=== PATIENT | female | born 1980 | race Caucasian/White ===

== ENCOUNTER 2018-12-22 14:49 | Inpatient (IN) ==
[2018-12-22] MEDS ORDERED: SODIUM CHLORIDE 0.9% 1000ML 1,000 ML IV ONE (15:28)
[2018-12-22] MEDS ORDERED: ONDANSETRON INJ 2 MG/ML 2 ML VIAL IV STA (15:28)
[2018-12-22 15:59] LABS: Basophils # (auto) 0.01 K/uL (0-0.2); Basophils % (auto) 0.1 %; Eosinophils # (auto) 0.25 K/uL (0-0.5); Eosinophils % (auto) 1.3 %; Hemoglobin 17.1 g/dL (12.0-16.0); Immature Granulocytes # (auto) 0.05 K/uL (0.00-0.02); Immature Granulocytes % (auto) 0.3 %; Lymphocytes # (auto) 1.88 K/uL (1.2-3.4); Lymphocytes % (auto) 9.4 %; Mean Corpuscular Hemoglobin 31.7 pg (25-34); Mean Corpuscular Hgb Conc 35.6 g/dL (32-36); Mean Corpuscular Volume 88.9 fL (80-100); Mean Platelet Volume 9.2 fL (7.4-10.4); Monocytes # (auto) 1.08 K/uL (0.11-0.59); Monocytes % (auto) 5.4 %; Neutrophils # (auto) 16.68 K/uL (1.4-6.5); Neutrophils % (auto) 83.5 %; Platelet Count 243 K/uL (130-400); RDW Coefficient of Variation 12.1 % (11.5-14.5); White Blood Count 19.95 K/uL (4.8-10.8)
[2018-12-22 16:15] LABS: Albumin Level 4.5 gm/dl (3.4-5.0); BUN Creatinine Ratio 15.8 (10-20); Bilirubin Direct 0.2 mg/dl (0-0.2); Calcium 9.4 mg/dl (8.5-10.1); Creatinine Clr Calc Pharmacy 101.7 ml/min; Est GFR (African American) 115.9; Potassium 3.6 mmol/L (3.5-5.1)
[2018-12-22 16:18] LABS: Bilirubin,Total 0.7 mg/dl (0.2-1); Total Protein 8.3 gm/dl (6.4-8.2)
[2018-12-22 17:00] LABS: Appearance Urine Cloudy (Clear); Bacteria Urine Automated 1+ (Negative); Bilirubin Urine Negative (Negative); Blood Urine Negative (Negative); Color Urine Dark Yellow; Epithelial Cell Urine Auto >30 /lpf (0-5); Glucose Urine UA Negative (Negative); Leukocyte Esterase Urine 1+ (Negative); Nitrite Urine Negative (Negative); Protein Urine Trace (Negative); Specific Gravity Urine 1.031 (1.000-1.030); Urobilinogen Urine Negative (Negative); WBC Urine Automated >30 /hpf (0-5)
--- NOTE | 2018-12-22 17:01 | Ultrasound Report ---
US gallbladder HISTORY: 37 years-old Female ro linda acute right upper quadrant abdominal pain COMPARISON: None available TECHNIQUE: Multiple real-time sonographic images of the abdominal right upper quadrant were obtained assessing grayscale appearance and color flow FINDINGS: Unremarkable sonographic appearance of the visualized pancreas. Ill-defined area of slightly increase d echogenicity is noted within the left hepatic lobe measuring 2.1 x 2.2 x 1.8 cm. No central flow wi thin this lesion. No intrahepatic biliary ductal dilation. Common bile duct is normal, 2 mm. Suggesti on of trace gallbladder sludge without wall thickening, or pericholecystic fluid. No cholelithiasis. Sonographic Escobar sign reported as negative. Imaged right kidney is unremarkable without hydronephro sis. IMPRESSION: 1. No cholelithiasis or sonographic evidence of acute cholecystitis. 2. Ill-defined area of slightly increased echogenicity of the left hepatic lobe measuring up to 2.2 c m is suspicious for underlying lesion. This finding could be correlated with a nonemergent follow-up MRI of the liver. 3. No biliary ductal dilation. The above report was generated using voice recognition software. It may contain grammatical, syntax o r spelling errors. Electronically signed by: Alvin Hammond M.D. 12/22/2018 5:00 PM
[2018-12-22 17:02] LABS: Ketones Urine 3+ (Negative)
[2018-12-22 17:11] LABS: Calcium Oxalate Crystals Urine Present (None Prsent); Cast Urine Automated 0 /lpf (0-5); Mucus Urine Present (None Prsent)
[2018-12-22] MEDS: SODIUM CHLORIDE 0.9% 1000ML 1,000 ML IV SCH (17:42)
--- NOTE | 2018-12-22 17:51 | History & Physical Report ---
Date of Service December 22, 2018 Assessment & Plan (1) Pancreatitis, acute: Consult gastroenterology. Add IV fluids. Keep n.p.o. except ice chips and sips of water. Repeat labs in a.m. Add Zofran for nausea /vomiting and morphine for pain control. (2) Abdominal pain: Secondary to pancreatitis. Morphine as needed basis added. IV Pepcid for GI prophylaxis. Check CT scan of the abdomen now. (3) DVT prophylaxis: Subcu Lovenox. (4) Nausea & vomiting: (5) Elevated lipase: History of Present Illness Chief Complaint: Epigastric pain Primary Care Provider: Merari Birch MD The patient is 37-year-old female who presented to the emergency room with chief complains of abdominal pain. She complains of sharp pain in the epigastric area which started at approximately 1 PM this afternoon. She was drinking beer last night, approximately 2-3 beers. She denies any excessive or heavy alcohol abuse. Today she had associated nausea /vomiting along with abdominal pain. No bloody stools. No hematemesis. Further work-up done in the ER shows that patient has possible pancreatitis. She will be admitted for further evaluation and management. No past history of pancreatitis. No family history of pancreatitis, no history of gallstones or abdominal trauma. Labs showed lipase level of 7775.. 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 Home Medications Home Medications Medication Instructions Recorded Confirmed Type Tenuate 1 tab PO QAM 12/22/18 12/22/18 History minocycline 100 mg PO BID 12/22/18 12/22/18 History Past Med/Surg History Social History Preferred Language: Kiswahili Communication Ability: Effective Beliefs That Will Affect Care: None Current Living Situation: Spouse Other Information That Helps Us Care for You: No Feels Safe at Home: Yes Safety Concerns: Feels Safe At This Time Smoking Status: Former smoker Hx Alcohol Use: Yes Alcohol type: beer Hx Substance Use: No Review of Systems Review of Systems: All systems reviewed & are unremarkable except as noted in HPI & below Physical Exam Physical Exam: GENERAL : No acute distress EYES: No icterus, gaze conjugate NOSE: No evidence of epistaxis MOUTH: No lesions or candidiasis, mucosa moist NECK: Supple LUNGS: CTA B/L, no wheezes, rales or rhonchi HEART: Regular, rate controlled ABDOMEN: Soft mild epigastric tenderness present EXTREMITIES: No LE edema, pedal pulses intact NEURO: A&OX3 Results & Data Vital Signs (Past 12 Hours) Vital Signs Temp Pulse Pulse Resp BP BP Pulse Ox 12/22/18 17:23 92 H 20 137/95 100 12/22/18 15:00 97.9 F 95 H 18 121/95 99 Laboratory Results 12/22/18 15:50 12/22/18 15:50 Diagnostic Findings US gallbladder HISTORY: 37 years-old Female ro linda acute right upper quadrant abdominal pain COMPARISON: None available TECHNIQUE: Multiple real-time sonographic images of the abdominal right upper quadrant were obtained assessing grayscale appearance and color flow FINDINGS: Unremarkable sonographic appearance of the visualized pancreas. Ill-defined area of slightly increased echogenicity is noted within the left hepatic lobe measuring 2.1 x 2.2 x 1.8 cm. No central flow within this lesion. No intrahepatic biliary ductal dilation. Common bile duct is normal, 2 mm. Suggestion of trace gallbladder sludge without wall thickening, or pericholecystic fluid. No cholelithiasis. Sonographic Escobar sign reported as negative. Imaged right kidney is unremarkable without hydronephrosis. IMPRESSION: 1. No cholelithiasis or sonographic evidence of acute cholecystitis. 2. Ill-defined area of slightly increased echogenicity of the left hepatic lobe measuring up to 2.2 cm is suspicious for underlying lesion. This finding could be correlated with a nonemergent follow-up MRI of the liver. 3. No biliary ductal dilation. Code Status & VTE Plan VTE Prophylaxis Plan VTE Prophylaxis will be ordered: Yes PG Care Time/CCT Total # of Minutes Spent Total Time Spent with Patient: Total time spent is greater than 50% in coordination of care (as documented) at patient's floor/unit and/or counseling patient: 60 m
--- NOTE | 2018-12-22 17:51 | XRay Report ---
PA CHEST RADIOGRAPH AND UPRIGHT AND SUPINE AP RADIOGRAPHS OF THE ABDOMEN CLINICAL HISTORY: Right upper quadrant pain. Vomiting. COMPARISON STUDY: Right upper quadrant ultrasound performed earlier today. FINDINGS: Lung volumes are normal. There is no consolidation or evidence for pulmonary edema. No pne umothorax or pleural effusion is noted. Cardiac size is normal. Mediastinal contours are normal. Ther e is no free air. The bowel gas pattern is normal. No urinary calculi are identified. IMPRESSION: 1. No free air or evidence of bowel obstruction. 2. No acute cardiopulmonary findings. Electronically signed by: Kalen Mehta M.D. 12/22/2018 5:50 PM
[2018-12-22] MEDS ORDERED: ONDANSETRON INJ 2 MG/ML 2 ML VIAL IV PRN (18:13)
[2018-12-22] MEDS ORDERED: MAGNESIUM HYDROXIDE SUSP 30 ML UDC PO PRN (18:13)
[2018-12-22] MEDS ORDERED: ALUMINUM/MAGNESIUM SUSP 30 ML UDC PO PRN (18:13)
[2018-12-22] MEDS ORDERED: MoRPHine SULFATE 2 MG/ML CARP IV PRN (18:13)
[2018-12-22] MEDS: ENOXAPARIN INJ 40 MG/0.4 ML SYR SQ SCH (18:32)
--- NOTE | 2018-12-22 19:03 | Emergency Department Note ---
Entered by Anjali Bhatia acting as a scribe for Jake Cline History of Present Illness General Chief complaint: Abdominal Pain Stated complaint: ABDOMINAL PAIN Time Seen by Provider: 12/22/18 15:21 Source: patient History of Present Illness Onset (ago): month(s) 1 Location: abdomen Pain Consistency: + other (worsening) Maximum Pain Intensity: 5 Quality: + other (cramping) Exacerbated By: + eating Associated symptoms: + nausea/vomiting and + other (positive loose and watery stools; negative vaginal bleeding or discharge; negative bloody or black vomit; negative bloody or black stools) The patient is a 37 year old female who presents to the Emergency Room with complaints of worsening abdominal pain that began approximately one month prior to arrival. The patient describes her pain as cramping. She states her pain began acutely hurting yesterday after eating. She states that this is exacerbated by eating, and states that her symptoms begin within minutes of eating. The patient denies any nausea or vomiting during this time, but states that today she vomited from the pain. She states that immediately after eating her stools become loose and watery. The patient denies fevers, vaginal bleeding or discharge, bloody or black vomit, and bloody or black stools. The patient denies any previous surgeries in her abdomen. 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 and A total of 10 systems reviewed and were otherwise negative Physical Exam Vital Signs Vital Signs - 24 hr 12/22/18 15:00 12/22/18 17:23 Temperature 36.6 C Temperature Source Oral Sepsis Recent Fever Within 48 Hours No Sepsis New/Unexplained Change in Mental Status No Sepsis Action Taken by Nursing No Action Required Pulse Rate 95 H Pulse Rate [Finger] 92 H Respiratory Rate 18 20 Respiratory Effort / Characteristics Non-Labored Spontaneous Respiratory Depth Normal Normal Respiratory Pattern Regular Blood Pressure 121/95 Blood Pressure [Right Arm] 137/95 Blood Pressure Mean 103 Blood Pressure Mean [Right Arm] 109 Blood Pressure Position [Right Arm] Sitting Pulse Oximetry 99 100 Oxygen Delivery Method Room Air Room Air GENERAL: She is oriented to person, place, and time. She appears well-developed and well-nourished. She does not appear distressed. HENT: Exam performed. - Head: Normocephalic and atraumatic. - Right Ear: External ear normal. No mastoid tenderness. - Left Ear: External ear normal. No mastoid tenderness. - Mouth/Throat: The oropharynx is clear and moist. No trismus in the jaw. No dental abscesses or uvula swelling. No oropharyngeal exudate or tonsillar abscesses. EYES: Conjunctivae and EOM are normal. Pupils are equal, round, and reactive to light. Right eye exhibits no discharge. Left eye exhibits no discharge. No scleral icterus. NECK: Normal range of motion. Neck supple. No JVD present. No spinous process tenderness present. No carotid bruit present. No rigidity. No tracheal deviation and normal range of motion present. No Brudzinski's sign and no Kernig's sign noted. CV: Normal rate, regular rhythm, normal heart sounds and intact distal pulses. There is no peripheral edema. Palpable radial pulses bue. PULM/CHEST: Effort normal and breath sounds normal. No respiratory distress. No stridor. She has no wheezes. She has no rales. Chest Wall: She exhibits no tenderness. ABD: The abdomen is soft. Bowel sounds are normal. She has no distension. No mass is present. Pain on palpation of the right upper quadrant and epigastric area. There is no rebound, no guarding, no Escobar's sign and no tenderness at McBurney's point. Rovsig negative MUSC/SKEL: Normal range of motion. There is no peripheral edema, tenderness or deformity. LYMPH: No cervical adenopathy. NEURO: She is alert and oriented to person, place, and time. She has normal strength. No cranial nerve deficit or sensory deficit. Coordination and gait normal. GCS eye subscore is 4. GCS verbal subscore is 5. GCS motor subscore is 6. cerbellar tests wnl. SKIN: Skin is warm and dry. She is not diaphoretic. PSYCH: She has a normal mood and affect. Her behavior is normal. Judgment and thought content normal. Course 1526: Past medical records reviewed. The patient was evaluated in room C1B. A complete history and physical exam was performed. 1717: The patient's vital signs are stable. She reports that her pain and nausea have improved. Her labs show a leukocystosis of 19 and lipase elevated over 7000. Upon reevaluation, the patient states that she is feeling better. She admits to drinking alcohol last night and occasionally. The patient states that she had 2 beers yesterday. I discussed the case with Dr. Gant-[facility] Hospitalist who accepts the patient for further evaluation. Ordered in the emergency department. He will follow-up on the results. Administered Medications Enoxaparin Sodium (Lovenox) 40 mg SQ Q24H LEE ANN Stop: 01/21/19 18:12 Last Admin: 12/22/18 18:32 Dose: Not Given Documented by: [id number] Sodium Chloride (Nss 1000ml) 1,000 mls @ 125 mls/hr IV .Q8H LEE ANN Stop: 01/21/19 17:29 Last Admin: 12/22/18 17:42 Dose: 125 mls/hr Documented by: [id number] Discontinued Medications Sodium Chloride (Nss 1000ml) 1,000 mls @ 999 mls/hr IV .Q1H1M ONE Stop: 12/22/18 16:28 Last Infusion: 12/22/18 17:08 Dose: 0 mls/hr Documented by: [id number] Admin: 12/22/18 16:07 Dose: 999 mls/hr Documented by: [id number] Ondansetron HCl (Zofran) 4 mg IV NOW STA Stop: 12/22/18 15:29 Last Admin: 12/22/18 16:07 Dose: 4 mg Documented by: [id number] Medical Decision Making Medical Records Attestation: I reviewed the patient's medical records. Home Medications Current Medication List: was personally reviewed by me Laboratory Data Attestation: I reviewed the patient's lab results. Result diagrams: 12/22/18 15:50 12/22/18 15:50 Lab Results 12/22/18 12/22/18 12/22/18 Range/Units 15:50 15:50 16:43 WBC 19.95 H (4.8-10.8) K/uL RBC 5.40 (4.2-5.4) M/uL Hgb 17.1 H (12.0-16.0) g/dL Hct 48.0 H (37-47) % MCV 88.9 (80-100) fL MCH 31.7 (25-34) pg MCHC 35.6 (32-36) g/dL RDW Std Deviation 39.0 (36.4-46.3) fL RDW Coeff of Amalia 12.1 (11.5-14.5) % Plt Count 243 (130-400) K/uL MPV 9.2 (7.4-10.4) fL Immature Gran % (Auto) 0.3 % Neut % (Auto) 83.5 % Lymph % (Auto) 9.4 % [place] % (Auto) 5.4 % Eos % (Auto) 1.3 % Baso % (Auto) 0.1 % Immature Gran # (Auto) 0.05 H (0.00-0.02) K/uL Neut # (Auto) 16.68 H (1.4-6.5) K/uL Lymph # (Auto) 1.88 (1.2-3.4) K/uL [place] # (Auto) 1.08 H (0.11-0.59) K/uL Eos # (Auto) 0.25 (0-0.5) K/uL Baso # (Auto) 0.01 (0-0.2) K/uL Sodium 138 (136-145) mmol/L Potassium 3.6 (3.5-5.1) mmol/L Chloride 104 (98-107) mmol/L Carbon Dioxide 25 (21-32) mmol/L Anion Gap 9.0 (3-11) BUN 12 (7-18) mg/dl Creatinine 0.77 (0.6-1.2) mg/dl Est Cr Clr Drug Dosing 101.7 ml/min Est GFR ( Amer) 115.9 Est GFR (Non-Af Amer) 100.0 BUN/Creatinine Ratio 15.8 (10-20) Glucose 108 H (70-99) mg/dl Calcium 9.4 (8.5-10.1) mg/dl Total Bilirubin 0.7 (0.2-1) mg/dl Direct Bilirubin 0.2 (0-0.2) mg/dl AST 19 (15-37) U/L ALT 24 (12-78) U/L Alkaline Phosphatase 66 (45-117) U/L Total Protein 8.3 H (6.4-8.2) gm/dl Albumin 4.5 (3.4-5.0) gm/dl Lipase 7775 H (73-393) U/L Urine Color Urine Appearance (Clear) Urine pH (4.5-7.5) Ur Specific [place] (1.000-1.030) Urine Protein (Negative) Urine Glucose (UA) (Negative) Urine Ketones (Negative) Urine Blood (Negative) Urine Nitrite (Negative) Urine Bilirubin (Negative) Urine Urobilinogen (Negative) Ur Leukocyte Esterase (Negative) Urine WBC (Auto) (0-5) /hpf Urine RBC (Auto) (0-4) /hpf U Hyaline Cast (Auto) (0-5) /lpf U Epithel Cells (Auto) (0-5) /lpf Urine Bacteria (Auto) (Negative) Calcium Oxalate Crystal (None Prsent) Urine Mucus (None Prsent) POC Ur Test NEG (NEG) 12/22/18 Range/Units 16:43 WBC (4.8-10.8) K/uL RBC (4.2-5.4) M/uL Hgb (12.0-16.0) g/dL Hct (37-47) % MCV (80-100) fL MCH (25-34) pg MCHC (32-36) g/dL RDW Std Deviation (36.4-46.3) fL RDW Coeff of Amalia (11.5-14.5) % Plt Count (130-400) K/uL MPV (7.4-10.4) fL Immature Gran % (Auto) % Neut % (Auto) % Lymph % (Auto) % [place] % (Auto) % Eos % (Auto) % Baso % (Auto) % Immature Gran # (Auto) (0.00-0.02) K/uL Neut # (Auto) (1.4-6.5) K/uL Lymph # (Auto) (1.2-3.4) K/uL [place] # (Auto) (0.11-0.59) K/uL Eos # (Auto) (0-0.5) K/uL Baso # (Auto) (0-0.2) K/uL Sodium (136-145) mmol/L Potassium (3.5-5.1) mmol/L Chloride (98-107) mmol/L Carbon Dioxide (21-32) mmol/L Anion Gap (3-11) BUN (7-18) mg/dl Creatinine (0.6-1.2) mg/dl Est Cr Clr Drug Dosing ml/min Est GFR ( Amer) Est GFR (Non-Af Amer) BUN/Creatinine Ratio (10-20) Glucose (70-99) mg/dl Calcium (8.5-10.1) mg/dl Total Bilirubin (0.2-1) mg/dl Direct Bilirubin (0-0.2) mg/dl AST (15-37) U/L ALT (12-78) U/L Alkaline Phosphatase (45-117) U/L Total Protein (6.4-8.2) gm/dl Albumin (3.4-5.0) gm/dl Lipase (73-393) U/L Urine Color Dark Yellow Urine Appearance Cloudy A (Clear) Urine pH 5.0 (4.5-7.5) Ur Specific [place] 1.031 H (1.000-1.030) Urine Protein Trace H (Negative) Urine Glucose (UA) Negative (Negative) Urine Ketones 3+ H (Negative) Urine Blood Negative (Negative) Urine Nitrite Negative (Negative) Urine Bilirubin Negative (Negative) Urine Urobilinogen Negative (Negative) Ur Leukocyte Esterase 1+ H (Negative) Urine WBC (Auto) >30 H (0-5) /hpf Urine RBC (Auto) 5-10 H (0-4) /hpf U Hyaline Cast (Auto) 0 (0-5) /lpf U Epithel Cells (Auto) >30 H (0-5) /lpf Urine Bacteria (Auto) 1+ H (Negative) Calcium Oxalate Crystal Present A (None Prsent) Urine Mucus Present A (None Prsent) POC Ur Test (NEG) Imaging Data Radiologist's Impression: Radiology results as stated below per my review and the radiologist's interpretation: US gallbladder HISTORY: 37 years-old Female ro linda acute right upper quadrant abdominal pain COMPARISON: None available TECHNIQUE: Multiple real-time sonographic images of the abdominal right upper quadrant were obtained assessing grayscale appearance and color flow FINDINGS: Unremarkable sonographic appearance of the visualized pancreas. Ill-defined area of slightly increased echogenicity is noted within the left hepatic lobe measuring 2.1 x 2.2 x 1.8 cm. No central flow within this lesion. No intrahepatic biliary ductal dilation. Common bile duct is normal, 2 mm. Suggestion of trace gallbladder sludge without wall thickening, or pericholecystic fluid. No cholelithiasis. Sonographic Escobar sign reported as negative. Imaged right kidney is unremarkable without hydronephrosis. IMPRESSION: 1. No cholelithiasis or sonographic evidence of acute cholecystitis. 2. Ill-defined area of slightly increased echogenicity of the left hepatic lobe measuring up to 2.2 cm is suspicious for underlying lesion. This finding could be correlated with a nonemergent follow-up MRI of the liver. 3. No biliary ductal dilation. The above report was generated using voice recognition software. It may contain grammatical, syntax or spelling errors. Electronically signed by: Alvin Hammond M.D. 12/22/2018 5:00 PM PA CHEST RADIOGRAPH AND UPRIGHT AND SUPINE AP RADIOGRAPHS OF THE ABDOMEN CLINICAL HISTORY: Right upper quadrant pain. Vomiting. COMPARISON STUDY: Right upper quadrant ultrasound performed earlier today. FINDINGS: Lung volumes are normal. There is no consolidation or evidence for pulmonary edema. No pneumothorax or pleural effusion is noted. Cardiac size is normal. Mediastinal contours are normal. There is no free air. The bowel gas pattern is normal. No urinary calculi are identified. IMPRESSION: 1. No free air or evidence of bowel obstruction. 2. No acute cardiopulmonary findings. Electronically signed by: Kalen Mehta M.D. 12/22/2018 5:50 PM Blood Pressure Blood Pressure Findings: Elevated blood pressure Blood Pressure Disposition: further management by hospitalist MARIANNE Garay The patient's vital signs are stable. She reports that her pain and nausea have improved. Her labs show a leukocystosis of 19 and lipase elevated over 7000. Upon reevaluation, the patient states that she is feeling better. She admits to drinking alcohol last night and occasionally. The patient states that she had 2 beers yesterday. I discussed the case with Dr. Gant-[facility] Hospitalist who accepts the patient for further evaluation. Ordered in the emergency department. He will follow-up on the results. Impression & Plan Pancreatitis Discharge Plan Visit Data *Final* Discharge Date/Time: 12/22/18 18:00 Chief Complaint: Abdominal Pain Stated Complaint: ABDOMINAL PAIN ED Provider: Jake Cline Discharge Problem: Pancreatitis Patient Disposition: Admitted As Inpatient Discharge Instructions Interventions: ED Discharge Assessment Last Done: 12/22/18 18:00 Discharge Problem: Pancreatitis Qualifiers: Chronicity: acute Pancreatitis type: unspecified pancreatitis type Acute pancreatitis complication: unspecified Qualified Code(s): K85.90 - Acute pancreatitis without necrosis or infection, unspecified The scribe's documentation has been prepared under my direction and personally reviewed by me in its entirety. I confirm that the note above accurately reflects all work, treatment, procedures, and medical decision making performed by me.
[2018-12-22] MEDS: FAMOTIDINE 20 MG in SYRINGE 3 ML IV SCH (20:20)
[2018-12-23] MEDS: SODIUM CHLORIDE 0.9% 1000ML 1,000 ML IV SCH ×2 (01:33→09:52)
[2018-12-23 06:49] LABS: Hematocrit (blood only) 36.7 % (37-47); Hemoglobin 12.6 g/dL (12.0-16.0); Mean Corpuscular Hemoglobin 31.2 pg (25-34); Mean Corpuscular Hgb Conc 34.3 g/dL (32-36); Mean Corpuscular Volume 90.8 fL (80-100); Mean Platelet Volume 9.2 fL (7.4-10.4); Platelet Count 215 K/uL (130-400); RDW Coefficient of Variation 12.2 % (11.5-14.5); RDW Standard Deviation 40.8 fL (36.4-46.3); Red Blood Count 4.04 M/uL (4.2-5.4); White Blood Count 7.12 K/uL (4.8-10.8)
[2018-12-23 07:19] LABS: BUN Creatinine Ratio 12.7 (10-20); Bilirubin Direct 0.2 mg/dl (0-0.2); Bilirubin,Total 0.9 mg/dl (0.2-1); Calcium 7.7 mg/dl (8.5-10.1); Creatinine Clr Calc Pharmacy 107.3 ml/min; Est GFR (African American) 123.7; Est GFR (Non-African American) 106.7
[2018-12-23] MEDS: ENOXAPARIN INJ 40 MG/0.4 ML SYR SQ SCH (08:59)
[2018-12-23] MEDS: FAMOTIDINE 20 MG in SYRINGE 3 ML IV SCH (09:01)
--- NOTE | 2018-12-23 09:12 | Discharge Summary ---
Date of Service December 23, 2018 Admission HPI Per Admitting Provider The patient is 37-year-old female who presented to the emergency room with chief complains of abdominal pain. She complains of sharp pain in the epigastric area which started at approximately 1 PM this afternoon. She was drinking beer last night, approximately 2-3 beers. She denies any excessive or heavy alcohol abuse. Today she had associated nausea /vomiting along with abdominal pain. No bloody stools. No hematemesis. Further work-up done in the ER shows that patient has possible pancreatitis. She will be admitted for further evaluation and management. No past history of pancreatitis. No family history of pancreatitis, no history of gallstones or abdominal trauma. Labs showed lipase level of 7775.. Admission Exam Per Admitting Provider GENERAL : No acute distress EYES: No icterus, gaze conjugate NOSE: No evidence of epistaxis MOUTH: No lesions or candidiasis, mucosa moist NECK: Supple LUNGS: CTA B/L, no wheezes, rales or rhonchi HEART: Regular, rate controlled ABDOMEN: Soft mild epigastric tenderness present EXTREMITIES: No LE edema, pedal pulses intact NEURO: A&OX3 Principal Diagnosis Acute Pancreatitis Discharge Exam General: A&Ox3. NAD. Cooperative. HEENT: Atraumatic, normocephalic. Pulm: CTAB A&P. -wheezes, -rales, -rhonchi. Symmetrical chest rise. No increase work of breathing. No respiratory distress. Cardiac: RRR, -mrg. Radial pulses intact and symmetrical. Abdominal: Nontender, nondistended, soft. BS present. Discharge Data 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 Consultations 12/22/18 17:18 ED Decision to Admit Stat 12/22/18 18:13 Consult Gastroenterology Routine Ordered Studies 12/22/18 15:28 US gallbladder Stat 12/22/18 15:36 US point of care ultrasound Stat Hospital Course (1) Pancreatitis, acute: Indira is a 37yo F who presented to the emergency department with acute nausea, vomiting, and abdominal pain and who was admitted for acute pancreatitis. Acute Pancreatitis Indira presented with acute nausea, nonbilious vomiting, and abdominal pain. Initial evaluation showed an elevated lipase of >7000, ultrasound revealed no cholelithiasis or sonographic evidence of acute cholecystitis, Ill-defined area of slightly increased echogenicity of the left hepatic lobe measuring up to 2.2 cm is suspicious for underlying lesion which could be correlated with a nonemergent follow-up MRI of the liver, and no biliary ductal dilation. She was made NPO and started on IV fluids overnight. She was given zofran for nausea and morphine for pain control. She was started on famotidine BID. She was afebrile without leukocytosis during admission. The next morning she had complete resolution of her symptoms. On further investigation into her history she did not reveal excess alcohol intake (2-3 drinks per night 2-3 days per week, with one episode of ~5 drinks wine tasting one week prior). Fasting lipid profile did not show elevated triglycerides, and she was not hypercalcemic. Her symptoms were most likely due to a small gallstone which had passed by time of imaging, however; she has a history of >1 year of minocycline daily use for acne which has been associated with sporadic pancreatitis. This medication was held during admission and at discharge. Her diet was advanced, and she was clinically well with no pain & at her normal baseline at time of discharge. Liver Lesion US of the gallbladder revealed a 2.2 hyperechoic focus suspicious for an underlying lesion. She is clinically well without signs of liver disease and without transaminitis. An MRI with/without contrast was ordered for follow-up which was to be completed in approximately 4 weeks after discharge. DVT Prophylaxis Indira was maintaned on enoxaparin 40mg SQ for DVT prophylaxis and showed no signs of DVT during admission. (2) Abdominal pain: (3) Nausea & vomiting: (4) Elevated lipase: (5) Pancreatitis: (6) DVT prophylaxis: Total Time Total Time Spent Total Time Spent (In Minutes): >30 Discharge Plan Discharge Items Patient Disposition: Home - Self-Care Reason For Visit: PANCREATITIS Discharge Diagnosis: Acute Pancreatitis Activity: Resume your previous activity Non-emergency contact: Primary Care Provider Call non-emergency contact if: you have any medication questions, your symptoms worsen, your pain is not controlled, your pain is worsening, your pain is unusual for you, your pain is concerning for you, you have a fever and your temperature is above 101 Follow-up/Referrals: Merari Birch MD [Primary Care Provider] - Diet: Low Fat Addtl Attending Provider Instructions: You were seen in the hospital for pancreatitis. Your pancreatitis was likely due to a very small gallstone which passed. There were no other stones or signs of obstruction noted on your imaging studies. Please keep a low-fat diet and avoid alcohol for at least 2 weeks. You will benefit from a low-fat and alcohol free diet for an additional 3 months as your pancreas recovers. There is no evidence of ongoing gallbladder disease during admission, however; If you have additional recurrent episodes of pancreatitis requiring hospitalization, further evaluation of your gallbladder by doctors at that time may be necessary. Please stop taking minocycline. This medication has a low chance of interacting and causing or worsening pancreatitis. 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 You are not being discharged on any new medications. A small area of echogenicity was seen in your liver on ultrasound. This is a very low chance of being problematic or dangerous, but should have follow-up imaging to confirm improvement in approximately 4 weeks. An MRI is being scheduled for you, and you should receive a call regarding an appointment in the next week. If you do not receive a call, please discuss follow-up imaging with your primary care provider at the appointment noted below. A follow-up appointment is being scheduled for you with your primary care provider Dr. Birch. You should hear from her office regarding an appointment within 48 hours. If you do not hear from their office, or need to cancel/change your appointment please call her office at [phone]. Pending Studies at Discharge: Yes Studies:: MRI Abdomen in 4 weeks Stand-Alone Forms: Call Back Authorization, [facility], Smoking Cessation Medications and DC Order Prescriptions: Continued Tenuate 1 tab PO QAM RF: 0 Discontinued minocycline 100 mg capsule 100 mg PO BID RF: 0 Discharge Orders: Discharge Order (Routine); Ordered 12/23/18 Ordered By: Benjamin Cruz Admission Data Admit Date/Time: 12/22/18 17:44 Attending Provider: Bakari Redd Admit Provider: Ronnie Gant Primary Care Provider: Merari Birch Other Providers: Ronnie Gant ; Tai Dockery Other Interventions: Discharge Summary Assessment (RN) Last Done: 12/23/18 14:05 DC Date/Time DO NOT enter until pt leaves facility: 12/23/18 14:44 Supervising Physician Co-Signing Physician Notes I personally examined the patient and verified all humphreys points of history and exam, discussed case, and agree with decision making with Dr Cruz. feeling better eating normally case d/w GI and input appreciated. vitals noted nad breathing unlabored abd soft nd nt no epigastric tenderness even to deep palpation no guarding no rebound no rigidity. acute pancreatitis - given rapid onset/rapid resolution - suspect microlithiasis, although this is difficult to prove. stable for home, low fat diet/avoid EtOH/hold minocycline liver lesion - nonspecific - d/w pt MRI to look at further, but will hold off until acute pancreatitis inflammation has had time to settle down so as not to risk subjecting her to a false positive and further testing. stable for home, otherwise as above Resident Activity Tracking Resident Involvement: Resident Care Provided Care Provided: Adult Hospital Medicine
--- NOTE | 2018-12-23 12:33 | Consultation Report ---
DATE OF CONSULTATION: 12/23/2018 REASON FOR EVALUATION: Acute pancreatitis. HISTORY OF PRESENT ILLNESS: The patient is a 37-year-old female who presented to the Emergency Room yesterday with acute onset yesterday about 1:00 p.m. of epigastric pain, nausea and vomiting. This happened after 10 minutes of eating rigatoni and meatballs. She had a similar episode about 5 days earlier while at work in the afternoon which was much less severe. She thought she had an upset stomach and went home, went to bed and the next morning it was completely gone. Yesterday's episode was much more severe and she was unable to tolerate. She came to the Emergency Room where she was found to have a lipase of over 7000. Ultrasound was performed and showed no gallstones. Her calcium was normal at 9.4. She is on no new medications. She did start taking minocycline for acne about 6 months ago. She does drink beer occasionally and had a couple of beers the day before. PAST MEDICAL HISTORY: Remarkable for delivering twins vaginally and acne. MEDICATIONS: Tenuate and minocycline. ALLERGIES: PENICILLIN. FAMILY HISTORY: Negative for history of pancreatitis. SOCIAL HISTORY: The patient is . 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 Former smoker. Drinks beer, usually about 2 beers 2 or 3 times a week. REVIEW OF SYSTEMS: Otherwise, negative for 12 systems. PHYSICAL EXAMINATION: GENERAL: The patient appears awake, alert, in no acute distress. VITAL SIGNS: Blood pressure is 137/95, pulse 92, respirations 20, O2 saturations 100%. SKIN: Shows some facial acne. Sclerae nonicteric. LUNGS: Clear. HEART: Showed a normal S1, S2. Regular rate and rhythm. ABDOMEN: Showed some stretch butler, but it was soft and nontender. Liver and spleen were not palpable. Lipase today is down to 517. IMPRESSION AND PLAN: The patient had an episode of acute pancreatitis, possibly precipitated by drinking beer the day before and possibly minocycline. Her symptoms have completely resolved. Her lipase is trending down quickly. She does not have any gallstones. 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
== END 2018-12-23 14:44 | disposition home or self-care (01) | DRG 440 ==
LOC: ED 14:49 → SUATTDRO 17:44 → 4W 17:44